=== PATIENT | male | born 1965 | race Hispanic/Latino ===

== ENCOUNTER 2017-11-14 14:51 | Emergency (ER) | payer OTHER ==
--- NOTE | 2017-11-14 16:21 | RAD ---
RIGHT KNEE 4 VIEWS: HISTORY: It hurts to bend knee. Below the knee is warm and red. FINDINGS: There are minimal arthritic changes of the knee. There are no signs of any significant joint effusio n or fracture. IMPRESSION: Minimal arthritic changes of the knee. POS: [facility]
== END 2017-11-14 16:17 | disposition short-term general hospital (02) ==
LOC: MADERS 14:51
DX: M79.89 Other specified soft tissue disorders (principal); M06.9 Rheumatoid arthritis, unspecified

== ENCOUNTER 2018-04-22 09:40 | Emergency (ER) | payer OTHER ==
[2018-04-22] MEDS ORDERED: Ketorolac Tromethamine 60 MG/2 ML VIAL ONE (10:10)
--- NOTE | 2018-04-22 11:15 | RAD ---
THORACIC SPINE THREE VIEWS: HISTORY: A 52-year-old male with a history of upper back pain after lifting a heavy object. FINDINGS: Mild generalized disk osteophytosis. No acute fracture, dislocation, or significant malalignment. IMPRESSION: Unremarkable thoracic spine three views. POS: [facility]
== END 2018-04-22 11:15 | disposition home or self-care (01) ==
LOC: MADERS 09:40
DX: S29.012A Strain of muscle and tendon of back wall of thorax, initial encounter (principal); E11.9 Type 2 diabetes mellitus without complications; E78.5 Hyperlipidemia, unspecified; X50.0XXA Overexertion from strenuous movement or load, initial encounter
CPT/HCPCS: 72072; 96372; J1885